=== PATIENT | female | born 2000 | race Asian ===

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

== ENCOUNTER 2018-05-27 15:50 | Outpatient (CLI) | payer OTHER | END 2018-05-27 16:10 | disposition short-term general hospital (02) | LOC: AMB 15:50 | DX: O47.03 False labor before 37 completed weeks of gestation, third trimester (principal) | CPT/HCPCS: A0425; A0427 ==

== ENCOUNTER 2018-06-12 12:46 | Emergency (ER) | payer OTHER ==
[~2018-06-12] VITALS: Ht 165.1 cm; Wt 83.5 kg
[2018-06-12 12:55] VITALS: BP 101/73; TEMP 97.9
== END 2018-06-12 13:05 | disposition home or self-care (01) ==
LOC: ED 12:46
DX: R10.84 Generalized abdominal pain (principal); O26.899 Other specified pregnancy related conditions, unspecified trimester
CPT/HCPCS: 99281

== ENCOUNTER 2018-07-14 21:34 | Emergency (ER) | payer OTHER ==
[~2018-07-14] VITALS: Ht 165.1 cm; Wt 83.5 kg
[2018-07-14 22:11] VITALS: BP 123/76; TEMP 98
== END 2018-07-14 22:14 | disposition home or self-care (01) ==
LOC: ED 21:34
DX: O42.913 Preterm premature rupture of membranes, unspecified as to length of time between rupture and onset of labor, third trimester (principal)
CPT/HCPCS: 99284

== ENCOUNTER 2018-07-14 22:53 | Emergency (ER) | payer OTHER ==
[~2018-07-14] VITALS: Ht 165.1 cm; Wt 83.5 kg
[2018-07-14 23:16] VITALS: BP 121/67; TEMP 97.7
== END 2018-07-14 23:28 | disposition short-term general hospital (02) ==
LOC: ED 22:53
DX: O42.913 Preterm premature rupture of membranes, unspecified as to length of time between rupture and onset of labor, third trimester (principal)
CPT/HCPCS: 36415; 99284

== ENCOUNTER 2018-07-14 23:28 | Outpatient (CLI) | payer OTHER | END 2018-07-15 00:03 | disposition short-term general hospital (02) | LOC: AMB 23:28 | DX: O42.913 Preterm premature rupture of membranes, unspecified as to length of time between rupture and onset of labor, third trimester (principal) | CPT/HCPCS: A0425; A0427 ==

== ENCOUNTER 2018-11-11 17:50 | Emergency (ER) | payer OTHER | END 2018-11-11 18:45 | disposition home or self-care (01) | LOC: ED 17:50 | DX: R10.9 Unspecified abdominal pain (principal); Z33.1 Pregnant state, incidental | CPT/HCPCS: 99281 ==

== ENCOUNTER 2019-01-28 10:36 | Emergency (ER) | payer OTHER ==
[~2019-01-28] VITALS: Ht 167.6 cm; Wt 83.9 kg
[2019-01-28 11:21] LABS: PLATELET COUNT 262 K/uL (152-353)
[2019-01-28 11:41] LABS: POTASSIUM 3.6 mmol/L (3.6-5.2)
[2019-01-28 12:40] VITALS: BP 115/67; TEMP 98
== END 2019-01-28 12:40 | disposition home or self-care (01) ==
LOC: ED 10:36
PROVIDERS: Student in an Organized Health Care Education/Training Program
DX: O46.92 Antepartum hemorrhage, unspecified, second trimester (principal); Z3A.18 18 weeks gestation of pregnancy
CPT/HCPCS: 36415; 80048; 81000; 84702; 85027; 86850; 86900; 86901; 96360; 99284

== ENCOUNTER 2019-04-18 17:37 | Emergency (ER) | payer OTHER ==
[~2019-04-18] VITALS: Ht 167.6 cm; Wt 83.9 kg
[2019-04-18 18:37] LABS: PLATELET COUNT 239 K/uL (152-353)
[2019-04-18 18:49] LABS: POTASSIUM 3.4 mmol/L (3.6-5.2)
[2019-04-18 18:57] LABS: PARTIAL THROMBOPLASTIN TIME 24.7 SECONDS (24.5-33.6)
[2019-04-18 19:25] VITALS: BP 125/58; TEMP 98.1
== END 2019-04-18 19:25 | disposition short-term general hospital (02) ==
LOC: ED 17:37
PROVIDERS: Hospitalist
DX: O60.02 Preterm labor without delivery, second trimester (principal); Z3A.23 23 weeks gestation of pregnancy
CPT/HCPCS: 36415; 80053; 81000; 85027; 85610; 85730; 96360; 99285

== ENCOUNTER 2019-04-20 23:01 | Emergency (ER) | payer OTHER ==
[~2019-04-20] VITALS: Ht 167.6 cm; Wt 83.9 kg
[2019-04-21 00:35] VITALS: BP 128/74; TEMP 98.1
== END 2019-04-21 00:35 | disposition home or self-care (01) ==
LOC: ED 23:01
DX: Z33.1 Pregnant state, incidental (principal); Z3A.23 23 weeks gestation of pregnancy
CPT/HCPCS: 99284

== ENCOUNTER 2019-05-15 13:49 | Emergency (ER) | payer OTHER ==
[~2019-05-15] VITALS: Ht 167.6 cm; Wt 83.9 kg
[2019-05-15 15:05] VITALS: BP 115/71; TEMP 98.1
== END 2019-05-15 15:05 | disposition short-term general hospital (02) ==
LOC: ED 13:49
DX: O42.913 Preterm premature rupture of membranes, unspecified as to length of time between rupture and onset of labor, third trimester (principal); Z3A.33 33 weeks gestation of pregnancy
CPT/HCPCS: 99284

== ENCOUNTER 2019-08-03 13:07 | Emergency (ER) | payer OTHER ==
[~2019-08-03] VITALS: Ht 167.6 cm; Wt 83.9 kg
[2019-08-03 13:28] VITALS: TEMP 97.7
[2019-08-03 15:25] VITALS: BP 133/78
== END 2019-08-03 15:25 | disposition home or self-care (01) ==
LOC: ED 13:07
DX: J02.0 Streptococcal pharyngitis (principal); F17.210 Nicotine dependence, cigarettes, uncomplicated
CPT/HCPCS: 87502; 87651; 99283

== ENCOUNTER 2019-08-18 18:26 | Emergency (ER) | payer OTHER ==
[~2019-08-18] VITALS: Ht 167.6 cm; Wt 81.6 kg
[2019-08-18 19:15] VITALS: BP 137/69; TEMP 97.7
== END 2019-08-18 19:15 | disposition home or self-care (01) ==
LOC: ED 18:26
DX: T63.301A Toxic effect of unspecified spider venom, accidental (unintentional), initial encounter (principal); Y92.89 Other specified places as the place of occurrence of the external cause
CPT/HCPCS: 99282

== ENCOUNTER 2019-09-05 13:10 | Emergency (ER) | payer OTHER ==
[~2019-09-05] VITALS: Ht 167.6 cm; Wt 81.6 kg
[2019-09-05 13:32] VITALS: TEMP 97.6
[2019-09-05 14:37] VITALS: BP 133/70
== END 2019-09-05 14:35 | disposition home or self-care (01) ==
LOC: ED 13:10
DX: K08.89 Other specified disorders of teeth and supporting structures (principal); H60.8X1 Other otitis externa, right ear
CPT/HCPCS: 96372; 99283; J0696; J1885

== ENCOUNTER 2019-11-27 09:58 | Emergency (ER) | payer OTHER ==
[~2019-11-27] VITALS: Ht 167.6 cm; Wt 81.6 kg
[2019-11-27 10:14] VITALS: BP 129/82; TEMP 98.7
== END 2019-11-27 10:44 | disposition home or self-care (01) ==
LOC: ED 09:58
DX: N76.0 Acute vaginitis (principal)
CPT/HCPCS: 81000; 87077; 87086; 87088; 87186; 99282

== ENCOUNTER 2020-01-05 20:29 | Emergency (ER) | payer OTHER ==
[~2020-01-05] VITALS: Ht 162.6 cm; Wt 81.6 kg
[2020-01-05 22:08] VITALS: BP 118/69; TEMP 99.3
== END 2020-01-05 22:09 | disposition home or self-care (01) ==
LOC: ED 20:29
DX: Z33.1 Pregnant state, incidental (principal)
CPT/HCPCS: 81025; 99282

== ENCOUNTER 2020-02-21 09:46 | Emergency (ER) | payer OTHER ==
[~2020-02-21] VITALS: Ht 162.6 cm; Wt 74.4 kg
[2020-02-21 09:59] VITALS: BP 112/65; TEMP 98.9
[2020-02-21 11:04] LABS: PLATELET COUNT 252 K/uL (152-353)
[2020-02-21 11:18] LABS: PARTIAL THROMBOPLASTIN TIME 25.6 SECONDS (24.5-33.6)
[2020-02-22] MEDS ORDERED: METR250T19 PO ×2 (12:15)
[2020-02-22] MEDS ORDERED: DOXYCYCL HYC100 MG PO ×2 (12:15)
== END 2020-02-21 13:09 | disposition home or self-care (01) ==
LOC: ED 09:46
PROVIDERS: General Practice
DX: Z53.29 Procedure and treatment not carried out because of patient's decision for other reasons (principal); Z3A.10 10 weeks gestation of pregnancy
CPT/HCPCS: 84702; 85027; 85610; 85730; 86900; 86901; 99283; 99284

== ENCOUNTER 2020-02-21 19:17 | Observation (INO) | payer OTHER ==
[~2020-02-21] VITALS: Ht 162.6 cm; Wt 72.7 kg
[2020-02-21 19:17] VITALS: BP 121/74; TEMP 98.6
[2020-02-21 19:30] VITALS: BP 115/75
[2020-02-21 20:00] VITALS: BP 107/73
[2020-02-21 20:30] VITALS: BP 116/69
[2020-02-21 21:00] VITALS: BP 119/74
[2020-02-22 00:03] VITALS: BP 106/74; TEMP 98.3; Ht 162.6 cm; Wt 72.7 kg
[2020-02-22 04:00] VITALS: BP 92/52; TEMP 98.3
[2020-02-22 05:59] LABS: PLATELET COUNT 239 K/uL (152-353)
[2020-02-22 06:56] LABS: POTASSIUM 4.1 mmol/L (3.6-5.2)
[2020-02-22 08:00] VITALS: BP 109/71; TEMP 98.3
[2020-02-22 12:00] VITALS: BP 112/70; TEMP 98.3
[2020-02-22] MEDS ORDERED: DOXYCYCL HYC100 MG PO ×2 (12:15)
[2020-02-22] MEDS ORDERED: METR250T19 PO ×2 (12:15)
== END 2020-02-22 11:15 | disposition home or self-care (01) ==
LOC: ED 19:18 → MED/SURG 20:18
PROVIDERS: ADMIT Internal Medicine
DX: O03.9 Complete or unspecified spontaneous abortion without complication (principal); I10 Essential (primary) hypertension; J45.998 Other asthma
CPT/HCPCS: 36415; 36416; 80048; 85014; 85018; 85027; 96360; 96365; 96366; 96372; 96375; 99220; 99284; G0378; J2405

== ENCOUNTER 2020-08-30 16:25 | Emergency (ER) | payer OTHER ==
[~2020-08-30] VITALS: Ht 162.6 cm; Wt 69.2 kg
[2020-08-30 16:25] VITALS: TEMP 98.6
[~2020-08-30 16:25] MED LIST: DOXYCYCL HYC100 MG PO; METR250T19 PO
[2020-08-30 17:03] LABS: PLATELET COUNT 326 K/uL (152-353)
[2020-08-30 17:12] LABS: POTASSIUM 3.6 mmol/L (3.6-5.2)
[2020-08-30 18:55] VITALS: BP 121/69
== END 2020-08-30 18:57 | disposition home or self-care (01) ==
LOC: ED 16:30
PROVIDERS: Hospitalist
DX: N39.0 Urinary tract infection, site not specified (principal); F12.10 Cannabis abuse, uncomplicated; R11.2 Nausea with vomiting, unspecified
CPT/HCPCS: 36415; 80053; 80307; 80320; 81000; 81025; 83690; 85027; 96360; 96365; 96375; 99284; J0696; J2405

== ENCOUNTER 2020-10-01 13:23 | Emergency (ER) | payer OTHER ==
[~2020-10-01] VITALS: Ht 162.6 cm; Wt 72.6 kg
[2020-10-01 13:49] VITALS: BP 111/72; TEMP 96.9
== END 2020-10-01 14:28 | disposition home or self-care (01) ==
LOC: ED 13:23
DX: R11.2 Nausea with vomiting, unspecified (principal)
CPT/HCPCS: 36415; 81000; 81025; 99283

== ENCOUNTER 2020-10-06 01:47 | Emergency (ER) | payer OTHER ==
[~2020-10-06] VITALS: Ht 162.6 cm; Wt 69.9 kg
[2020-10-06 02:21] LABS: PLATELET COUNT 269 K/uL (152-353)
[2020-10-06 02:27] LABS: POTASSIUM 3.7 mmol/L (3.6-5.2); SODIUM 140 mmol/L (136-145)
[2020-10-06 03:21] VITALS: BP 118/68; TEMP 98.3
== END 2020-10-06 03:21 | disposition home or self-care (01) ==
LOC: ED 01:47
PROVIDERS: Hospitalist
DX: N39.0 Urinary tract infection, site not specified (principal); F12.10 Cannabis abuse, uncomplicated
CPT/HCPCS: 36415; 80048; 80307; 81000; 84702; 85008; 85027; 85610; 96360; 96361; 96365; 96375; 99284; J0696; J1885; J2405

== ENCOUNTER 2020-11-06 16:15 | Emergency (ER) | payer OTHER ==
[~2020-11-06] VITALS: Ht 162.6 cm; Wt 73.5 kg
[2020-11-06 16:22] VITALS: BP 137/97; TEMP 99.2
== END 2020-11-06 17:35 | disposition home or self-care (01) ==
LOC: ED 16:15
DX: N93.8 Other specified abnormal uterine and vaginal bleeding (principal)
CPT/HCPCS: 81000; 84702; 87077; 87086; 87088; 87186; 99283

== ENCOUNTER 2021-01-25 10:48 | Emergency (ER) | payer OTHER ==
[~2021-01-25] VITALS: Ht 162.6 cm; Wt 73.5 kg
[2021-01-25 10:57] VITALS: TEMP 97
[2021-01-25 12:40] VITALS: BP 118/76
== END 2021-01-25 12:41 | disposition home or self-care (01) ==
LOC: ED 10:48
DX: S09.8XXA Other specified injuries of head, initial encounter (principal); S06.0X0A Concussion without loss of consciousness, initial encounter; Y09 Assault by unspecified means; Y92.89 Other specified places as the place of occurrence of the external cause
CPT/HCPCS: 96372; 99283; J1885; J2405

== ENCOUNTER 2021-02-28 10:00 | Outpatient (CLI) | payer OTHER | END 2021-02-28 21:29 | disposition home or self-care (01) | LOC: LAB 10:00 | PROVIDERS: ATTEND Internal Medicine | DX: Z20.822 Contact with and (suspected) exposure to COVID-19 (principal) | CPT/HCPCS: 87635; G2023; U0003 ==

== ENCOUNTER 2021-02-28 10:24 | Emergency (ER) | payer OTHER ==
[~2021-02-28] VITALS: Ht 162.6 cm; Wt 67.1 kg
[2021-02-28 10:58] VITALS: BP 123/78; TEMP 97.2
== END 2021-02-28 13:36 | disposition home or self-care (01) ==
LOC: ED 10:24
DX: J06.9 Acute upper respiratory infection, unspecified (principal); Z20.822 Contact with and (suspected) exposure to COVID-19
CPT/HCPCS: 87651; 99282

== ENCOUNTER 2021-03-10 15:47 | Emergency (ER) | payer OTHER ==
[~2021-03-10] VITALS: Ht 162.6 cm; Wt 65.8 kg
[2021-03-10 16:52] LABS: PLATELET COUNT 251 K/uL (152-353)
[2021-03-10 18:02] VITALS: BP 120/78; TEMP 98.1
== END 2021-03-10 18:10 | disposition home or self-care (01) ==
LOC: ED 15:47
PROVIDERS: Family Medicine
DX: R10.2 Pelvic and perineal pain (principal); R19.09 Other intra-abdominal and pelvic swelling, mass and lump; R10.84 Generalized abdominal pain
CPT/HCPCS: 36415; 80053; 81000; 81025; 83690; 84702; 85027; 99283

== ENCOUNTER 2021-03-21 18:48 | Emergency (ER) | payer OTHER ==
[~2021-03-21] VITALS: Ht 162.6 cm; Wt 65.3 kg
[2021-03-21 20:12] VITALS: BP 112/69; TEMP 98.2
== END 2021-03-21 20:12 | disposition home or self-care (01) ==
LOC: ED 18:48
DX: K21.9 Gastro-esophageal reflux disease without esophagitis (principal)
CPT/HCPCS: 99283

== ENCOUNTER 2021-04-12 11:27 | Emergency (ER) | payer OTHER ==
[~2021-04-12] VITALS: Ht 162.6 cm; Wt 65.3 kg
[2021-04-12 11:38] VITALS: BP 113/64; TEMP 98.9
[2021-04-12 14:22] LABS: PLATELET COUNT 226 K/uL (152-353)
[2021-04-12 14:36] LABS: POTASSIUM 3.8 mmol/L (3.6-5.2); SODIUM 137 mmol/L (136-145)
== END 2021-04-12 15:45 | disposition home or self-care (01) ==
LOC: ED 11:27
PROVIDERS: Emergency Medicine Emergency Medical Services
DX: U07.1 COVID-19 (principal); J20.8 Acute bronchitis due to other specified organisms
CPT/HCPCS: 80053; 84484; 85027; 85379; 85610; 87040; 93005; 99283

== ENCOUNTER 2021-04-12 16:55 | Emergency (ER) | payer OTHER ==
[~2021-04-12] VITALS: Ht 162.6 cm; Wt 65.3 kg
[2021-04-12 17:03] VITALS: BP 116/75; TEMP 98.7
== END 2021-04-12 17:15 | disposition home or self-care (01) ==
LOC: ED 16:55
DX: R55 Syncope and collapse (principal)
CPT/HCPCS: 99281

== ENCOUNTER 2021-04-15 12:03 | Emergency (ER) | payer OTHER ==
[~2021-04-15] VITALS: Ht 162.6 cm; Wt 70.3 kg
[2021-04-15 12:14] VITALS: TEMP 98.4
[2021-04-15 15:18] VITALS: BP 110/70
== END 2021-04-15 15:19 | disposition home or self-care (01) ==
LOC: ED 12:03
DX: R07.89 Other chest pain (principal); R07.81 Pleurodynia
CPT/HCPCS: 96372; 99283; J1100; J1885

== ENCOUNTER 2021-06-07 15:59 | Outpatient (CLI) | payer OTHER | END 2021-06-07 19:02 | disposition home or self-care (01) | LOC: CT 15:59 | PROVIDERS: ATTEND Nurse Practitioner Family | DX: S05.8X1A Other injuries of right eye and orbit, initial encounter (principal); Y92.9 Unspecified place or not applicable ==

== ENCOUNTER 2021-07-17 15:26 | Emergency (ER) | payer OTHER ==
[~2021-07-17] VITALS: Ht 162.6 cm; Wt 70.3 kg
[2021-07-17 16:08] LABS: PLATELET COUNT 283 K/uL (152-353)
[2021-07-17 16:18] LABS: POTASSIUM 4.5 mmol/L (3.6-5.2)
[2021-07-17 17:45] VITALS: BP 121/62; TEMP 98
== END 2021-07-17 17:45 | disposition home or self-care (01) ==
LOC: ED 15:26
PROVIDERS: Emergency Medicine Emergency Medical Services
DX: Z3A.09 9 weeks gestation of pregnancy (principal); R11.2 Nausea with vomiting, unspecified
CPT/HCPCS: 36415; 80048; 81000; 81025; 83735; 85027; 96360; 96375; 99284; J2405

== ENCOUNTER 2021-08-21 16:56 | Emergency (ER) | payer OTHER ==
[~2021-08-21] VITALS: Ht 165.1 cm; Wt 70.3 kg
[2021-08-21 17:04] VITALS: BP 126/69; TEMP 98.5
== END 2021-08-21 18:10 | disposition home or self-care (01) ==
LOC: ED 16:56
DX: Z53.21 Procedure and treatment not carried out due to patient leaving prior to being seen by health care provider (principal)
CPT/HCPCS: 99281

== ENCOUNTER 2021-11-20 16:18 | Emergency (ER) | payer OTHER | END 2021-11-20 16:43 | disposition home or self-care (01) | LOC: ED 16:18 | DX: Z53.21 Procedure and treatment not carried out due to patient leaving prior to being seen by health care provider (principal) | CPT/HCPCS: 99281 ==

== ENCOUNTER 2022-01-11 07:23 | Emergency (ER) | payer OTHER ==
[~2022-01-11] VITALS: Ht 165.1 cm; Wt 85.7 kg
[2022-01-11 07:40] VITALS: TEMP 98.1
[2022-01-11 09:03] VITALS: BP 106/62
== END 2022-01-11 09:09 | disposition home or self-care (01) ==
LOC: ED 07:23
DX: J45.909 Unspecified asthma, uncomplicated (principal); K08.89 Other specified disorders of teeth and supporting structures; F17.210 Nicotine dependence, cigarettes, uncomplicated
CPT/HCPCS: 81000; 94664; 96372; 99284; J2920

== ENCOUNTER 2022-03-20 18:43 | Emergency (ER) | payer OTHER ==
[~2022-03-20] VITALS: Ht 165.1 cm; Wt 77.1 kg
[2022-03-20 18:45] VITALS: TEMP 98.7
[2022-03-20 19:55] LABS: POTASSIUM 3.6 mmol/L (3.6-5.2)
[2022-03-20 20:00] LABS: PLATELET COUNT 248 K/uL (152-353)
[2022-03-20 21:30] VITALS: BP 133/94
== END 2022-03-20 21:30 | disposition home or self-care (01) ==
LOC: ED 18:43
PROVIDERS: Emergency Medicine Emergency Medical Services
DX: R11.10 Vomiting, unspecified (principal)
CPT/HCPCS: 36415; 80048; 83735; 85008; 85027; 96360; 96374; 96375; 99284; J1885; J2405; Q9963

== ENCOUNTER 2022-05-27 20:18 | Outpatient (CLI) | payer OTHER | END 2022-05-27 21:46 | disposition home or self-care (01) | LOC: LABW 20:18 | PROVIDERS: ATTEND Nurse Practitioner Family | DX: N92.5 Other specified irregular menstruation (principal) | CPT/HCPCS: 36415; 84702 ==

== ENCOUNTER 2022-06-21 06:52 | Emergency (ER) | payer OTHER ==
[~2022-06-21] VITALS: Ht 165.1 cm; Wt 88.5 kg
[2022-06-21 07:00] VITALS: BP 125/99; TEMP 97.9
== END 2022-06-21 09:53 | disposition still patient (30) ==
LOC: ED 06:52
DX: S20.211A Contusion of right front wall of thorax, initial encounter (principal); N91.2 Amenorrhea, unspecified; W18.09XA Striking against other object with subsequent fall, initial encounter; Y92.89 Other specified places as the place of occurrence of the external cause
CPT/HCPCS: 84702; 99284

== ENCOUNTER 2022-07-05 09:35 | Observation (INO) | payer OTHER ==
[~2022-07-05] VITALS: Ht 165.1 cm; Wt 88.6 kg
[2022-07-05 09:35] VITALS: BP 162/117; TEMP 98.2
[2022-07-05 10:19] LABS: PLATELET COUNT 329 K/uL (152-353); POTASSIUM 3.3 mmol/L (3.6-5.2)
[2022-07-05 15:33] VITALS: BP 148/95; TEMP 98.4
[2022-07-05] MEDS ORDERED: IBU800 MG PO (17:53)
[2022-07-05] MEDS ORDERED: PROAIR HFA108 MCG/AC (17:54)
[2022-07-05 20:26] VITALS: BP 163/99; TEMP 98.7
[2022-07-06 00:01] VITALS: BP 130/82; TEMP 98.5
[2022-07-06 04:01] VITALS: BP 140/84; TEMP 98.7
[2022-07-06 05:29] LABS: PLATELET COUNT 260 K/uL (152-353)
[2022-07-06 05:44] LABS: POTASSIUM 3.3 mmol/L (3.6-5.2)
[2022-07-06 08:20] VITALS: BP 177/114; TEMP 98.6
[2022-07-06 11:54] VITALS: BP 147/88; TEMP 98
[2022-07-06 16:00] VITALS: BP 160/96; TEMP 97.9
[2022-07-06 20:24] VITALS: BP 159/109; TEMP 99
[2022-07-07 00:01] VITALS: BP 161/99; TEMP 98.9
[2022-07-07 04:01] VITALS: BP 169/106; TEMP 98.9
[2022-07-07 06:24] LABS: POTASSIUM 3.6 mmol/L (3.6-5.2)
[2022-07-07 06:34] LABS: PLATELET COUNT 282 K/uL (152-353)
[2022-07-07 07:55] VITALS: BP 141/83; TEMP 98.5
[2022-07-07 11:53] VITALS: BP 124/70; TEMP 98.5
[2022-07-07 16:05] VITALS: BP 159/98; TEMP 98
[2022-07-07 20:00] VITALS: BP 137/87; TEMP 99.6
[2022-07-08 00:03] VITALS: BP 110/50; TEMP 99.1
[2022-07-08 04:01] VITALS: BP 164/105; TEMP 98.6
[2022-07-08 08:01] VITALS: BP 149/96; TEMP 98.5
[2022-07-08] MEDS ORDERED: PROM25SU PR (08:56)
[2022-07-08] MEDS ORDERED: AMLODIPINE BESYLATE PO (08:57)
== END 2022-07-08 09:47 | disposition home or self-care (01) ==
LOC: ED 09:35 → MED/SURG 13:30
PROVIDERS: Family Medicine; ADMIT Internal Medicine; ATTEND Internal Medicine
DX: K31.84 Gastroparesis (principal); F12.988 Cannabis use, unspecified with other cannabis-induced disorder; R11.2 Nausea with vomiting, unspecified; I10 Essential (primary) hypertension
CPT/HCPCS: 36415; 80053; 80307; 81002; 81025; 82150; 83605; 83690; 85027; 87040; 87635; 96360; 96361; 96367; 96374; 96375; 96376; 99220; 99284; G0378; J0132; J0360; J1630; J1885; J2270; J2405; J2550; J2765; J3490; Q9963; U0003

== ENCOUNTER 2022-10-13 14:01 | Emergency (ER) | payer OTHER ==
[~2022-10-13] VITALS: Ht 165.1 cm; Wt 72.6 kg
[~2022-10-13 14:01] MED LIST changes: +AMLODIPINE BESYLATE PO; +IBU800 MG PO; +PROAIR HFA108 MCG/AC; +PROM25SU PR
[2022-10-13 15:58] LABS: PLATELET COUNT 292 K/uL (152-353)
[2022-10-13 15:59] LABS: POTASSIUM 2.8 mmol/L (3.6-5.2)
[2022-10-13 17:16] VITALS: BP 138/87; TEMP 98.2
== END 2022-10-13 17:16 | disposition home or self-care (01) ==
LOC: ED 14:01
PROVIDERS: Internal Medicine
DX: F12.10 Cannabis abuse, uncomplicated (principal)
CPT/HCPCS: 80053; 80307; 81002; 81025; 85027; 96361; 96372; 96374; 99284; J2270; J2550

== ENCOUNTER 2022-11-16 08:24 | Emergency (ER) | payer OTHER ==
[~2022-11-16] VITALS: Ht 165.1 cm; Wt 88.5 kg
[2022-11-16 09:08] LABS: PLATELET COUNT 329 K/uL (152-353)
[2022-11-16 09:12] LABS: POTASSIUM 3.6 mmol/L (3.6-5.2)
[2022-11-16 09:55] VITALS: BP 158/97; TEMP 98
== END 2022-11-16 09:55 | disposition home or self-care (01) ==
LOC: ED 08:24
PROVIDERS: Emergency Medicine
DX: R11.2 Nausea with vomiting, unspecified (principal)
CPT/HCPCS: 80053; 81002; 81025; 85027; 99283

== ENCOUNTER 2022-11-25 12:21 | Outpatient (CLI) | payer OTHER | END 2022-11-25 19:03 | disposition home or self-care (01) | LOC: RAD 12:21 | PROVIDERS: ATTEND Nurse Practitioner Primary Care | DX: M54.59 Other low back pain (principal) ==

== ENCOUNTER 2022-12-20 13:22 | Emergency (ER) | payer OTHER ==
[~2022-12-20] VITALS: Ht 165.1 cm; Wt 89.8 kg
[2022-12-20 14:25] VITALS: BP 113/66; TEMP 98.2
== END 2022-12-20 14:30 | disposition home or self-care (01) ==
LOC: ED 13:22
DX: M79.18 Myalgia, other site (principal); E66.8 Other obesity; F17.210 Nicotine dependence, cigarettes, uncomplicated
CPT/HCPCS: 96372; 99282; J1885; J2360

== ENCOUNTER 2022-12-25 18:20 | Emergency (ER) | payer OTHER ==
[~2022-12-25] VITALS: Ht 165.1 cm; Wt 81.6 kg
[2022-12-25 18:20] VITALS: BP 161/98; TEMP 97.3
== END 2022-12-25 20:24 | disposition home or self-care (01) ==
LOC: ED 18:20
DX: N39.0 Urinary tract infection, site not specified (principal); A08.4 Viral intestinal infection, unspecified
CPT/HCPCS: 80307; 81000; 81025; 87077; 87086; 87088; 87186; 99283; J2550

== ENCOUNTER 2022-12-26 18:27 | Inpatient (IN) | payer OTHER ==
[~2022-12-26] VITALS: Ht 165.1 cm; Wt 90.4 kg
[2022-12-26 18:27] VITALS: BP 148/90; TEMP 98.3
[2022-12-26 18:58] LABS: PLATELET COUNT 292 K/uL (152-353)
[2022-12-26 19:14] LABS: POTASSIUM 3.2 mmol/L (3.6-5.2)
[2022-12-27 04:23] VITALS: BP 145/73; TEMP 98.6; Ht 165.1 cm; Wt 90.4 kg
[2022-12-27 08:00] VITALS: BP 155/96; TEMP 98
[2022-12-27 08:59] LABS: PLATELET COUNT 261 K/uL (152-353)
[2022-12-27] MEDS ORDERED: TRAMADOL HYDROC50 MG PO (09:26)
[2022-12-27] MEDS ORDERED: IBU800 MG PO (09:27)
[2022-12-27] MEDS ORDERED: ALBU90AE13 INH (09:27)
[2022-12-27] MEDS ORDERED: CYCLOBENZAPRINE10 MG PO (09:27)
[2022-12-27 09:37] LABS: POTASSIUM 3.9 mmol/L (3.6-5.2)
[2022-12-27 16:00] VITALS: BP 125/88
[2022-12-27 19:36] VITALS: BP 143/84; TEMP 98.7
[2022-12-27 23:54] VITALS: BP 107/52; TEMP 98.8
[2022-12-28 04:00] VITALS: BP 107/54; TEMP 98.1
[2022-12-28 04:41] LABS: PLATELET COUNT 227 K/uL (152-353)
[2022-12-28 05:01] LABS: POTASSIUM 3.2 mmol/L (3.6-5.2)
[2022-12-28 08:00] VITALS: BP 115/74; TEMP 97.7
[2022-12-28 12:00] VITALS: BP 127/77; TEMP 97.9
[2022-12-28 16:00] VITALS: BP 146/66; TEMP 98.1
[2022-12-28 19:32] VITALS: BP 127/72; TEMP 98.6
[2022-12-28 23:32] VITALS: BP 121/76; TEMP 98.8
[2022-12-29 03:55] VITALS: BP 142/57; TEMP 98.6
[2022-12-29 05:27] LABS: PLATELET COUNT 204 K/uL (152-353)
[2022-12-29 06:26] LABS: POTASSIUM 3.8 mmol/L (3.6-5.2)
[2022-12-29 08:00] VITALS: BP 154/93; TEMP 98.4
[2022-12-29 12:00] VITALS: BP 174/109; TEMP 98.6
[2022-12-29 16:00] VITALS: BP 129/83; TEMP 97.9
[2022-12-29 19:41] VITALS: BP 138/82; TEMP 98.7
[2022-12-29 23:39] VITALS: BP 130/80; TEMP 98.9
[2022-12-30 03:44] VITALS: BP 138/88; TEMP 98.9
[2022-12-30 05:13] LABS: PLATELET COUNT 242 K/uL (152-353)
[2022-12-30 05:38] LABS: POTASSIUM 3.1 mmol/L (3.6-5.2)
[2022-12-30 08:00] VITALS: BP 118/73; TEMP 98.7
[2022-12-30] MEDS ORDERED: CEFUROXIME500 MG PO (09:59)
[2022-12-30] MEDS ORDERED: HYDROCODONE BIT1 TA2 PO (10:02)
== END 2022-12-30 11:10 | disposition home or self-care (01) | DRG 690 ==
LOC: ED 18:27 → MED/SURG 21:40
PROVIDERS: ADMIT Emergency Medicine; ATTEND Internal Medicine
DX: N39.0 Urinary tract infection, site not specified (principal); R10.9 Unspecified abdominal pain; R11.2 Nausea with vomiting, unspecified; B96.29 Other Escherichia coli [E. coli] as the cause of diseases classified elsewhere; N93.8 Other specified abnormal uterine and vaginal bleeding; E87.6 Hypokalemia; F12.10 Cannabis abuse, uncomplicated
CPT/HCPCS: 36415; 80053; 80307; 81000; 81025; 82550; 83605; 83735; 84145; 85027; 96360; 96361; 96365; 96367; 96374; 96375; 96376; 99284; J0696; J1885; J2270; J2405; Q9963

== ENCOUNTER 2023-02-01 15:18 | Emergency (ER) | payer OTHER ==
[~2023-02-01] VITALS: Ht 165.1 cm; Wt 88.9 kg
[~2023-02-01 15:18] MED LIST changes: +ALBU90AE13 INH; +CEFUROXIME500 MG PO; +CYCLOBENZAPRINE10 MG PO; +HYDROCODONE BIT1 TA2 PO; +TRAMADOL HYDROC50 MG PO
[2023-02-01 15:33] VITALS: BP 128/83; TEMP 97.8
== END 2023-02-01 16:10 | disposition home or self-care (01) ==
LOC: ED 15:18
DX: S39.012A Strain of muscle, fascia and tendon of lower back, initial encounter (principal); M62.830 Muscle spasm of back; S16.1XXA Strain of muscle, fascia and tendon at neck level, initial encounter; F17.210 Nicotine dependence, cigarettes, uncomplicated
CPT/HCPCS: 99282

== ENCOUNTER 2023-02-02 14:42 | Emergency (ER) | payer OTHER ==
[~2023-02-02] VITALS: Ht 165.1 cm; Wt 89.4 kg
[2023-02-02 16:15] LABS: PLATELET COUNT 315 K/uL (152-353)
[2023-02-02 16:20] LABS: POTASSIUM 3.2 mmol/L (3.6-5.2)
[2023-02-02 22:15] VITALS: BP 123/76; TEMP 97.8
== END 2023-02-02 22:25 | disposition still patient (30) ==
LOC: ED 14:42
PROVIDERS: Family Medicine
DX: E87.5 Hyperkalemia (principal); R11.0 Nausea; K52.9 Noninfective gastroenteritis and colitis, unspecified
CPT/HCPCS: 36415; 80053; 81000; 81025; 82150; 83605; 83690; 83735; 85027; 87077; 87086; 87088; 87186; 96361; 96365; 96372; 96375; 99284; J0500; J1100; J1200; J1630; J1885; J2060; J2405; J2543; J2765; Q9963